=== PATIENT | male | born 1945 | race Caucasian/White ===

== ENCOUNTER 2020-07-31 06:53 | Day surgery (SDC) | payer MEDICARE, OTHER ==
[~2020-07-31 06:53] MED LIST: Lactated Ringers 1,000 ML IV SCH
[2020-07-31] MEDS ORDERED: Propofol 200 MG/20 ML SDV ONE (07:23)
[2020-07-31] MEDS ORDERED: fentaNYL 100 MCG/2 ML SDV ONE (07:23)
[2020-07-31] MEDS ORDERED: Lidocaine 2% 5 ML SDV ONE (07:26)
--- NOTE | 2020-07-31 07:31 | PCM.PREANE ---
Preanesthetic Assessment - Anesthesia/Transfusion/Family Hx Anesthesia History: Prior Anesthesia Reaction Type of Anesthesia Reaction: Other (see below) Other Type of Anesthesia Reaction Comment: "I get wild waking up after anesthesia" Family History of Anesthesia Reaction: No Transfusion History: No Prior Transfusion(s) Intubation History: Unknown - Review of Systems General: No Symptoms Pulmonary: No Symptoms Cardiovascular: No Symptoms Gastrointestinal: No Symptoms Neurological: No Symptoms Other: Reports: None - Physical Assessment NPO Status Date: 07/31/20 NPO Status Time: 00:01 Vital Signs: Last Vital Signs Temp 97.9 F 07/31/20 07:10 Pulse 70 07/31/20 07:10 Resp 16 07/31/20 07:10 BP 137/65 07/31/20 07:10 Pulse Ox 97 07/31/20 07:10 Height: 6 ft 2 in Weight: 212 lb ASA Class: 2 Mental Status: Alert & Oriented x3 Airway Class: Mallampati = 2 Dentition: Reports: Normal Dentition ROM/Head Extension: Limited/Partial Lungs: Clear to Auscultation, Normal Respiratory Effort Cardiovascular: Regular Rate, Regular Rhythm - Lab Values: Laboratory Last Values SARS-CoV-2 RNA (DARSHANA) NEGATIVE (NEGATIVE) 07/31/20 06:00 - Allergies Allergies/Adverse Reactions: Allergies Allergy/AdvReac Type Severity Reaction Status Date / Time Penicillins Allergy Pain Verified 07/31/20 07:15 sulfa powder Allergy Swelling Uncoded 07/31/20 07:15 - Anesthesia Plan Pre-Op Medication Ordered: None - Acknowledgements Anesthesia Type Planned: General Anesthesia Pt an Appropriate Candidate for the Planned Anesthesia: Yes Alternatives and Risks of Anesthesia Discussed w Pt/Guardian: Yes Pt/Guardian Understands and Agrees with Anesthesia Plan: Yes Additional Comments: npo C3-5 fusion 1986 back laminectomy Had debbie chest pain 2008 with abnormat ETT.Cardiac cath told nl he has no cp, hua sob sx with activity tob quit 1986 etoh rarely he woke up "wild" after his neck and back surgeries but other surgeries uneventful par no questions PreAnesthesia Questionnaire HEENT History: Reports: Other (See Below) Other HEENT History: wears glasses, has upper and lower partial plates Cardiovascular History: Reports: None Respiratory History: Reports: None Gastrointestinal History: Reports: None Genitourinary History: Reports: BPH Musculoskeletal History: Reports: Back Pain, Chronic Neurological History: Reports: None Psychiatric History: Reports: None Endocrine/Metabolic History: Reports: None Hematologic History: Reports: None Immunologic History: Reports: None Oncologic (Cancer) History: Reports: None Dermatologic History: Reports: None - Infectious Disease History Infectious Disease History: Reports: Chicken Pox - Past Surgical History Head Surgeries/Procedures: Reports: None HEENT Surgical History: Reports: None Other Cardiovascular Surgeries/Procedures: states had a cardiac catheterization in 2008 but everything was ok Respiratory Surgical History: Reports: None GI Surgical History: Reports: Colonoscopy Female Surgical History: Reports: None Male Surgical History: Reports: None Neurological Surgical History: Reports: C-Spine, Lumbar Spine Other Neurological Surgeries/Procedures: cervical fusion with cadaver bone, hx lumbar laminectomy Musculoskeletal Surgical History: Reports: Other (See Below) Other Musculoskeletal Surgeries/Procedures:: hx cervical fusion and lumbar laminectomy - SUBSTANCE USE Tobacco Use Status *Q: Never Tobacco User - HOME MEDS Home Medications: Home Meds Finasteride 1 tab PO DAILY 06/30/17 [History] Tamsulosin HCl [Flomax] 1 tab PO DAILY 06/30/17 [History] - CURRENT (IN HOUSE) MEDS Current Meds: Current Medications Lactated Ringer's (Ringers, Lactated) 1,000 mls @ 125 mls/hr IV ASDIRECTED [facility] Last Admin: 07/31/20 07:15 Dose: 125 mls/hr Documented by: Discontinued Medications Fentanyl (Fentanyl 100 Mcg/2 Ml Sdv) Confirm Administered Dose 100 mcg .ROUTE .STK-MED ONE Stop: 07/31/20 07:24 Propofol (Propofol 200 Mg/20 Ml Sdv) Confirm Administered Dose 400 mg .ROUTE .STK-MED ONE Stop: 07/31/20 07:24
[2020-07-31] MEDS ORDERED: Lactated Ringers 1,000 ML IV SCH (08:30)
--- NOTE | 2020-07-31 08:30 | PCM.OPNOTE ---
- General Post-Op/Procedure Note Date of Surgery/Procedure: 07/31/20 Operative Procedure(s): Colonoscopy with cold ascending colon polypectomy and cold rectal polypectomy Pre Op Diagnosis: Personal history of colon polyps Post-Op Diagnosis: Ascending colon and rectal polyps Anesthesia Technique: MAC (ASA II) Primary Surgeon: Luis Darden Harbour Master: Angella Waite Condition: Good Free Text/Narrative:: DICTATION [id number] CPT CODE [id number]
--- NOTE | 2020-07-31 08:59 | PCM48HPAN ---
Post Anesthesia Note - EVALUATION WITHIN 48HRS OF ANESTHETIC Vital Signs in Normal Range: Yes Patient Participated in Evaluation: Yes Respiratory Function Stable: Yes Airway Patent: Yes Cardiovascular Function Stable: Yes Hydration Status Stable: Yes Pain Control Satisfactory: Yes Nausea and Vomiting Control Satisfactory: Yes (Denies nausea) Mental Status Recovered: Yes Vital Signs: Last Vital Signs Temp 36.4 C 07/31/20 08:45 Pulse 76 07/31/20 08:45 Resp 14 07/31/20 08:45 BP 142/82 H 07/31/20 08:45 Pulse Ox 96 07/31/20 08:45
--- NOTE | 2020-07-31 09:00 | PCM.POSTAN ---
POST ANESTHESIA ASSESSMENT - MENTAL STATUS Mental Status: Alert, Oriented - VITAL SIGNS Vital Signs: Last Vital Signs Temp 36.4 C 07/31/20 08:45 Pulse 76 07/31/20 08:45 Resp 14 07/31/20 08:45 BP 142/82 H 07/31/20 08:45 Pulse Ox 96 07/31/20 08:45 - RESPIRATORY Respiratory Status: Respiratory Rate WNL, Airway Patent, O2 Saturation Stable - CARDIOVASCULAR CV Status: Pulse Rate WNL, Blood Pressure Stable - GASTROINTESTINAL GI Status: No Symptoms - PAIN Pain Score: 0 - POST OP HYDRATION Hydration Status: Adequate & Stable
--- NOTE | 2020-07-31 09:03 | OR ---
SURGEON: Luis Darden M.D. DATE OF PROCEDURE: 07/31/2020 OPERATION PERFORMED: Colonoscopy with cold ascending colon polypectomy and cold rectal polypectomy. PRIMARY SURGEON: Luis Darden MD. ANESTHESIA: MAC. ASA CLASSIFICATION: 2. 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 PREOPERATIVE DIAGNOSIS: Personal history of colon polyps. POSTOPERATIVE DIAGNOSIS: Ascending colon and rectal polyps. DESCRIPTION OF PROCEDURE: The patient was taken to the endoscopy room and positioned on the endoscopy table in the left lateral decubitus position. A time-out was called for appropriate identification of the patient and procedure. Monitored anesthesia care was provided. The colonoscope was inserted into the rectum and advanced with minimal difficulty to the cecum. The cecum was identified by internal landmarks and external pressure. The colonoscope was retroflexed to visualize the ascending colon from below and then straightened and slowly withdrawn. One polyp was encountered in the ascending colon and removed with multiple bites of the cold biopsy forceps. The remainder of the ascending colon, hepatic flexure, transverse colon, splenic flexure, descending colon, and sigmoid colon showed no tumors, polyps, diverticula, or angiodysplastic changes. One small polyp was encountered in the rectum, and likewise removed with the cold biopsy forceps. Once the colonoscope was withdrawn to the distal rectum, it was retroflexed to visualize the anal orifice from above. Again no tumors or polyps were seen, and there were no acute hemorrhoidal changes. There were some minor chronic changes, but no acute bleeding. The colonoscope was then straightened, the rectum aspirated, and the colonoscope removed. The patient tolerated the procedure well and was taken to recovery room in stable condition. MAURICE / ENA /[id number]
== END 2020-07-31 09:16 | disposition home or self-care (01) ==
LOC: MW.SDS 06:53
PROVIDERS: ATTEND Surgery
DX: D12.2 Benign neoplasm of ascending colon (principal); K62.1 Rectal polyp; Z01.812 Encounter for preprocedural laboratory examination; Z20.822 Contact with and (suspected) exposure to COVID-19; N40.0 Benign prostatic hyperplasia without lower urinary tract symptoms; E78.5 Hyperlipidemia, unspecified; Z88.0 Allergy status to penicillin; Z88.2 Allergy status to sulfonamides; Z79.899 Other long term (current) drug therapy; Z98.890 Other specified postprocedural states; Z87.891 Personal history of nicotine dependence
CPT/HCPCS: 45380; J2704; J3010; J7120; U0002; 00812; 88305